=== PATIENT | female | born 1965 ===

== ENCOUNTER 2018-03-17 06:43 | Day surgery (SDC) | payer OTHER ==
[2018-03-16 14:13] VITALS: BMI 50.6
[2018-03-17 07:39] VITALS: TEMP 98.3
--- NOTE | 2018-03-17 08:39 | OP ---
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 POSTOPERATIVE DIAGNOSIS: Dilated gastric outlet/dilated gastrojejunostomy. PROCEDURE: Esophagogastroduodenoscopy/upper endoscopy. SPECIMEN: None. ESTIMATED BLOOD LOSS: None. ANESTHESIA: MAC. REASON FOR PROCEDURE: This is a 52-year-old female who presents for weight regain after a prior Rosa-en-Y gastric bypass. To evaluate for dilation of the gastric outlet, an endoscopy was scheduled. The risks and benefits of the procedure were explained. These included bleeding; infection; injury to the route and surrounding structures including the oral cavity, esophagus, GE junction, stomach, and small bowel; stricture; perforation; aspiration; injury to surrounding structures; [place]; DVT; PE as some of the complications. She understood and signed informed consent. DESCRIPTION OF PROCEDURE: Patient was placed in left lateral decubitus position and underwent MAC by Anesthesia. A timeout was performed. The endoscope was placed into the patient's mouth and inserted through the esophagus to the GE junction, down into the gastric pouch, up to the level of the gastric outlet, gastrojejunostomy, and into the jejunum. The gastric outlet was noted to be dilated to approximately 3 cm in diameter, consistent with a dilated gastric outlet. Pictures were taken. The stomach was suctioned. The endoscope fully removed. Patient tolerated the procedure well, transferred to recovery room in stable condition. JESICA AMBRIZ M.D. [id number]
[2018-03-17 09:03] VITALS: BP 142/98; PULSE 61
== END 2018-03-17 09:03 | disposition home or self-care (01) ==
LOC: JASU-ENDO 06:43
PROVIDERS: ATTEND Surgery
PROC: 0DJ08ZZ Inspection of Upper Intestinal Tract, Via Natural or Artificial Opening Endoscopic (ICD-10-PCS; principal; 2018-03-17 08:00)
DX: E66.01 Morbid (severe) obesity due to excess calories (principal); Z98.84 Bariatric surgery status; K31.89 Other diseases of stomach and duodenum
CPT/HCPCS: 84703